=== PATIENT | female | born 1980 | race Caucasian/White ===

== ENCOUNTER 2022-05-11 18:27 | Emergency (ER) | payer OTHER, SELFPAY ==
[2022-05-11 18:29] VITALS: BP 205/109; PULSE 120; RESP 16; TEMP 36.9; O2SAT 96; BMI 48.8
[2022-05-11 18:43] VITALS: BP 189/108; PULSE 103; RESP 18; TEMP 36.7; O2SAT 97; BMI 38.6
--- NOTE | 2022-05-11 19:01 | ECG_ITS ---
APPROVED REPORT Exam: Resting ECG HR:119 bpm ECG Measurements Heart Rate 119 AXES WI 166 P 31 QRSd 97 QRS 4 QT 336 T 6 QTc 406 Conclusion SINUS TACHYCARDIA MINIMAL VOLTAGE CRITERIA FOR LVH, CONSIDER NORMAL VARIANT [MEETS CRITERIA IN ONE OF: R(aVL), S(V1), R(V5), R(V5/V6)+S(V1)] ANTERIOR MYOCARDIAL INFARCTION , OF INDETERMINATE AGE [40+ ms Q WAVE AND/OR ST/T ABNORMALITY IN V3/V4] ABNORMAL ECG UNCONFIRMED REPORT Electronically signed by : Luis Cooley MD 05/13/2022 21:20:53
--- NOTE | 2022-05-11 19:23 | XR_ITS ---
PROCEDURE INFORMATION: Exam: XR Chest Exam date and time: 05/11/2022 7:50 PM Age: 41 years old Clinical indication: Sternal or substernal pain; Additional info: Chest tightness TECHNIQUE: Imaging protocol: Radiologic exam of the chest. Views: 2 views. COMPARISON: No relevant prior studies available. FINDINGS: Lungs: Unremarkable. No consolidation. Pleural spaces: Unremarkable. No pleural effusion. No pneumothorax. Heart/Mediastinum: Unremarkable. No cardiomegaly. Bones/joints: Unremarkable. IMPRESSION: No acute findings.
[2022-05-11 19:36] LABS: Blood Urea Nitrogen 12 mg/dl (7-17); Calcium 9.8 mg/dl (8.4-10.2); Carbon Dioxide 22 mmol/L (22.0-30.0); Chloride 96 mmol/L (98-107); Creatinine Clearance Estimated 301 mL/min (50-200); Estimated Glomerular Filt Rate 177 ml/min (>60); GFR (African American) 214 ML/MIN (>60); Glucose 194 mg/dl (74-100); Sodium 136 mmol/L (136-145)
[2022-05-11 19:49] LABS: Troponin I < 0.01 ng/ml (0.00-0.034)
[2022-05-11 19:59] LABS: Anion Gap 21.8 mEq/L (5-15); Potassium 3.8 mmoL/L (3.5-5.1)
[2022-05-11 20:01] LABS: Basophils # 0.2 K/mm3 (0-0.2); Basophils % 1.1 % (0.1-2.0); Eosinophils # 0.3 K/mm3 (0.0-0.4); Eosinophils % 1.7 % (0.1-12.0); Hematocrit 44.5 % (37.0-47.0); Hemoglobin 15.5 g/dL (12.2-16.2); Lymphocytes # 5.1 K/mm3 (0.7-4.5); Lymphocytes % 29.2 % (10-50); Mean Corpuscular HGB Conc 34.9 g/dL (31.8-35.4); Mean Platelet Volume 7.6 fl (7.4-10.4); Monocytes # 0.6 K/mm3 (0.1-1.0); Monocytes % 3.4 % (1.7-9.3); Neutrophils # 11.3 K/mm3 (1.8-7.8); Neutrophils % 64.5 % (37.0-80.0); Platelet Count 338 K/mm3 (142-424); Red Cell Distribution Width 13.4 % (11.5-17.5); White Blood Count 17.5 K/mm3 (4.8-10.8)
[2022-05-11 20:02] LABS: MANUAL DIFFERENTIAL MANUAL DIFFERENTIAL (MANUAL DIFF)
[2022-05-11 20:58] LABS: Lymphocytes % 26 % (10-50); Monocytes % 1 % (2-9); Neutrophils % 73 % (42-76); Total Cells Counted 100
[2022-05-11 20:59] LABS: Platelet Estimate Normal; RBC Morphology Normal
--- NOTE | 2022-05-11 21:42 | [facility].EDCP ---
Discharge Plan Disposition Patient Disposition: Home, Self-Care Referrals Follow up/Referrals: Sabrina Beyer MD [Primary Care Provider] - See instructions Clinical Impressions Clinical Impression: Chest pain, Atypical chest pain, Hypertensive emergency, no CHF Instructions Patient Instructions: DI for Atypical Chest Pain Discharge ED Provider: Krishna Palomares Chest Pain HPI General Chief Complaint: Chest Pain Stated Complaint: High Blood Pressure 175/100 Time Seen by Provider: 05/11/22 21:00 Mode of Arrival: Ambulatory Source of Information: Patient, Spouse and Medical Record Limitations: No Limitations Description of Symptoms (Recalled from ER Triage Doc. by RN): pt comes in with c/o chest discomfort, dizziness and elevated blood pressure. pt states she has appt with pcp harish for this issue but felt she could not wait. History of Present Illness HPI narrative: elevated bp with episode of chest pain complaint: chest pain indicative of cardiac Onset (ago): hour(s) Duration: intermittent Activity at onset: during rest Pain location: left chest Severity: moderate Quality: dull Pain radiation: none Risk Factors for CAD: Hypertension and Family Hx of CAD Treatments prior to or on arrival for Cardiac Chest Pain: none KATHRIN Score for Non-Stemi Age of Patient: 40-49 years old Heart Rate: 90-109 bpm Systolic Blood Pressure: 160-199 mmHg Serum Creatinine: 0.40-0.79 mg/dl CHF [place] Class: I-No CHF Other Risk Factors: None Non-Stemi Risk Score: 54 Related Data On Oral Contraceptives: No Allergies Allergy/AdvReac Type Severity Reaction Status Date / Time No Known Allergies Allergy Verified 05/11/22 19:23 PFSH PFSH Social History Smoking Status: Never smoker alcohol intake: never current occupational status: employed Travel in the last 8 weeks: None ROS Obtained: Yes All systems reviewed & no additional complaints except as documented Physical Exam General General appearance: alert and obese Head Head exam: normocephalic Eye Eye exam: Present PERRL and EOMI ENT ENT exam: Present mucous membranes moist Neck Neck exam: Present trachea midline Respiratory Respiratory exam: Absent respiratory distress Cardiovascular Cardiovascular exam: Present regular rate; Absent systolic murmur Abdominal Exam Abdominal exam: Present soft Extremities Exam Extremities exam: Present full ROM Neurological Exam Neurological exam: Present alert, oriented X3 and CN II-XII intact; Absent motor sensory deficit Psychiatric Psychiatric exam: Present normal affect Skin Skin exam: Absent rash Medical Decision Making Medical Records Medical records reviewed: Yes I reviewed the patient's medical records. Choco Inquiry Pt receiving controlled substance: No Vital Signs: 05/11/22 18:43 05/11/22 18:29 Temperature 98.0 F 98.5 F Temperature Source Oral Oral Pulse Rate [Left Radial] 103 H 120 H Respiratory Rate 18 16 Blood Pressure [Right Arm] 189/108 H 205/109 H Blood Pressure Mean [Right Arm] 135 141 02 Sat by Pulse Oximetry 97 96 Lab Data Lab results reviewed: Yes I reviewed the patient's lab results. Lab Results 05/11/22 19:14: Sodium 136, Potassium 3.8, Chloride 96 L, Carbon Dioxide 22, Anion Gap 21.8 H, BUN 12, Creatinine 0.40 L, Estimated Creat Clear 301 H, Estimated GFR 177, Est GFR ( Amer) 214, Glucose 194 H, Calcium 9.8, Troponin I < 0.01 05/11/22 19:46: WBC 17.5 H, RBC 5.00, Hgb 15.5, Hct 44.5, MCV 89.0, MCH 31.0, MCHC 34.9, RDW 13.4, Plt Count 338, MPV 7.6, Neut % (Auto) 64.5, Lymph % (Auto) 29.2, Vance % (Auto) 3.4, Eos % (Auto) 1.7, Baso % (Auto) 1.1, Neut # (Auto) 11.3 H, Lymph # (Auto) 5.1 H, Vance # (Auto) 0.6, Eos # (Auto) 0.3, Baso # (Auto) 0.2, Total Counted 100, Neutrophils % (Manual) 73, Lymphocytes % (Manual) 26, Monocytes % (Manual) 1 L, Platelet Estimate Normal, RBC Morphology Normal 05/11/22 22:20: Troponin I < 0.01 Result diagrams: 05/11/22 19:46
[2022-05-11 23:17] LABS: Troponin I < 0.01 ng/ml (0.00-0.034)
[2022-05-11 23:57] VITALS: BP 163/97; PULSE 90; RESP 18; TEMP 36.7; O2SAT 97
== END 2022-05-11 23:59 | disposition home or self-care (01) ==
PROVIDERS: Emergency Medicine; Emergency Provider Emergency Medicine; PCP Family Medicine
DX: R07.89 Other chest pain (principal); I16.1 Hypertensive emergency
CPT/HCPCS: 36415; 71046; 80048; 84484; 85007; 85025; 93005; 99284